=== PATIENT | female | born 1965 | race Caucasian/White ===

== ENCOUNTER 2018-02-26 08:04 | Emergency (ER) | payer OTHER, SELFPAY ==
[2018-02-26 08:15] VITALS: BP 125/87; PULSE 80; RESP 16; TEMP 36.4; O2SAT 95
--- NOTE | 2018-02-26 08:48 | W.ED.GENAD ---
Discharge Plan Disposition Patient Disposition: HOME Condition: Stable Discharge Details Chief Complaint: HeadInjury Clinical Impression: Acute head trauma Primary Care Provider: Ashish Mike ED Provider: Bhumi Elliott Home Meds and New Rx's Prescriptions: Continued hydrochlorothiazide 25 MG tablet 25 mg PO DAILY Qty: 90 RF: 4 montelukast [Singulair] 10 MG tablet 10 mg PO DAILY Qty: 30 RF: 1 cetirizine [Zyrtec] 10 MG tablet 10 mg PO HS RF: 0 losartan [Cozaar] 50 mg tablet 100 mg PO DAILY Qty: 90 RF: 3 Discharge Instructions Instructions: Head Injury (ED) Additional Instructions: Please return immediately to the emergency department if you develop any new or worsening symptoms or if you become otherwise concerned. It is extremely important that you make an appointment to be seen in follow-up for this visit by your primary care doctor within the next 1-2 weeks. Referrals: Ashish Mike, [Primary Care Provider] - Discharge Data Discharge Date/Time-TO BE ENTERED AT DEPARTURE: 02/26/18 10:43 Medical Decision Making Amy Caceres is a 52-year-old woman with history of hypertension who presented to the emergency department with mechanical fall with loss of consciousness, headache. On exam patient is very well and nontoxic appearing. She has a nonfocal neuro exam. Given persistent headache and loss of consciousness, plan for CT head for rule out intracranial bleeding. Exam/history not consistent with acute cervical spine pathology, significant extremity or thoracoabdominal injury. Record review shows tetanus updated 2012. CT had negative per radiology. Patient reporting headache since resolved at this time. She reports some mild muscle aching in bilateral shoulders, declines ibuprofen at this time. Lengthy discussion with patient regarding return to emergency department precautions and importance of outpatient follow-up with her PCP. Patient verbalizes understanding of the plan. Medical Records Medical records reviewed: Yes I reviewed the patient's medical records. Imaging Data Radiologic Study: Attestation: I personally reviewed and interpreted this imaging study as follows: Radiologist's impression: Per radiology over the phone: CT head shows no acute process, no incidental findings HPI General Mode of arrival: ambulatory. Date/Time Provider Initiated Documentation: 02/26/18 08:48. Limitations to Documentation: no limitations. Information obtained by: patient, family, RN notes reviewed and old records reviewed. HPI Narrative: Amy Caceres is a 52-year-old woman with a history of hypertension presenting to the emergency department with headache after fall. Patient reports that she was on her way to work and was standing next to her car when she slipped on ice. She remembers both of her feet flying out in front of her, and then remembers waking up lying on her back on the driveway. She states that she did not lose consciousness, and is unsure how long the loss of consciousness was. Patient believes it was brief. She was able to walk back into her house. She had nausea and lightheadedness directly after the fall, along with headache. Patient reports that nausea has resolved and headache has improved. No further lightheadedness. Patient reports that she had no symptoms preceding the fall and that fall was mechanical slip due to ice. No palpitations, lightheadedness. Patient denies any pain other than headache. No vomiting, diarrhea, numbness/tingling/weakness. No previous rash, shortness of breath, cough, or recent illness. Has been eating and drinking as usual. Related Data Home Medications Medication Instructions Recorded Confirmed hydrochlorothiazide 25 mg PO DAILY #90 tab 18 02/26/18 montelukast [Singulair] 10 mg PO DAILY #30 tab-cap 06/21/17 02/26/18 cetirizine [Zyrtec] 10 mg PO HS 08/04/17 02/26/18 losartan 50 mg tablet 100 mg PO DAILY #90 tab-cap 01/24/18 02/26/18 Previous Rx's Medication Instructions Recorded hydrochlorothiazide 25 mg PO DAILY #90 tab 06/09/17 montelukast [Singulair] 10 mg PO DAILY #30 tab-cap 06/21/17 losartan 50 mg tablet 100 mg PO DAILY #90 tab-cap 01/24/18 Allergies Allergy/AdvReac Type Severity Reaction Status Date / Time lisinopril AdvReac Intermediate cough Verified 11/29/17 15:43 General Stated Complaint: HeadInjury ALICIA: 3 Review of Systems Review of Systems Constitutional: denies fevers Eyes: denies eye pain, visual changes ENT: denies facial pain, dental pain, sore throat Cardiovascular: denies chest pain Respiratory: denies SOB, cough GI: denies abdominal pain, vomiting, diarrhea, reports nausea : denies flank pain MSK: denies back pain, neck pain, arthralgias, myalgias Skin: denies rash Neuro: reports headaches, lightheadedness after fall, denies numbness/tingling, weakness PFSH Medical History HTN (hypertension) (Chronic) Surgical History Cholecystectomy (~2011) Family History Mother Essential hypertension Hyperlipidemia Father Diabetes Essential hypertension Heart disease Hyperlipidemia Neoplasm Grandfather Essential hypertension Heart disease Grandfather Essential hypertension Heart disease Hyperlipidemia Stroke Grandmother Essential hypertension Heart disease Grandmother Essential hypertension Heart disease Hyperlipidemia Daughter No problems noted. 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 Smoking/Tobacco Use Status: Never alcohol intake: current alcohol intake frequency: a few times a month substance use type: does not use special don needs: No Exam Narrative Exam Narrative: Constitutional: well and [id number]-[id number], pleasant, conversing normally HENT: head with 2x3cm occipital hematoma with superficial abrasion, normocephalic, mucous membranes moist Eyes: conjunctiva normal, sclera normal, pupils 3mm b/l, RLA, EOMI Neck: no stridor, normal painless ROM, trachea midline, cervical spine and paraspinals nontender to palpation Chest: normal inspection Resp: normal work of breathing, LCTAB Cardio: normal rate, normal rhythm, 2 out of 6 murmur unknown to patient Back: normal inspection, no rash Skin: warm, dry, normal color, no rash Neuro: alert, not altered, cranial nerves II through XII intact, motor 5 out of 5 throughout, normal tone Ext: no edema Psych: normal mood, normal affect, normal behavior Course Vital Signs Temperature 36.4 C L 02/26/18 08:15 Pulse 80 02/26/18 08:15 Respiratory Rate 16 02/26/18 08:15 Blood Pressure 125/87 02/26/18 08:15 Pulse Oximetry 95 02/26/18 08:15 Temperature 36.4 C L 02/26/18 08:15 Temperature Source Tympanic 02/26/18 08:15 Pulse 80 02/26/18 08:15 Respiratory Rate 16 02/26/18 08:15 Respiratory Effort 02/26/18 08:15 Blood Pressure 125/87 02/26/18 08:15 Pulse Oximetry 95 02/26/18 08:15 Oxygen Delivery Method Room Air 02/26/18 08:15 Oxygen Flow Rate 0 02/26/18 08:15 Pain Level 7 02/26/18 08:15
--- NOTE | 2018-02-26 08:52 | ED.GENADUL_ITS ---
Discharge Plan Disposition Patient Disposition: HOME Condition: Stable Discharge Details Chief Complaint: HeadInjury Clinical Impression: Acute head trauma Primary Care Provider: Ashish Mike ED Provider: Bhumi Elliott Home Meds and New Rx's Prescriptions: Continued hydrochlorothiazide 25 MG tablet 25 mg PO DAILY Qty: 90 RF: 4 montelukast [Singulair] 10 MG tablet 10 mg PO DAILY Qty: 30 RF: 1 cetirizine [Zyrtec] 10 MG tablet 10 mg PO HS RF: 0 losartan [Cozaar] 50 mg tablet 100 mg PO DAILY Qty: 90 RF: 3 Discharge Instructions Instructions: Head Injury (ED) Additional Instructions: Please return immediately to the emergency department if you develop any new or worsening symptoms or if you become otherwise concerned. It is extremely important that you make an appointment to be seen in follow-up for this visit by your primary care doctor within the next 1-2 weeks. Referrals: Ashish Mike, [Primary Care Provider] - Discharge Data Discharge Date/Time-TO BE ENTERED AT DEPARTURE: 02/26/18 10:43 Medical Decision Making Amy Caceres is a 52-year-old woman with history of hypertension who presented to the emergency department with mechanical fall with loss of consciousness, headache. On exam patient is very well and nontoxic appearing. She has a nonfocal neuro exam. Given persistent headache and loss of consciousness, plan for CT head for rule out intracranial bleeding. Exam/history not consistent with acute cervical spine pathology, significant extremity or thoracoabdominal injury. Record review shows tetanus updated 2012. CT had negative per radiology. Patient reporting headache since resolved at this time. She reports some mild muscle aching in bilateral shoulders, declines ibuprofen at this time. Lengthy discussion with patient regarding return to emergency department precautions and importance of outpatient follow-up with her PCP. Patient verbalizes understanding of the plan. Medical Records Medical records reviewed: Yes I reviewed the patient's medical records. Imaging Data Radiologic Study: Attestation: I personally reviewed and interpreted this imaging study as follows: Radiologist's impression: Per radiology over the phone: CT head shows no acute process, no incidental findings HPI General Mode of arrival: ambulatory . Date/Time Provider Initiated Documentation: 02/26/18 08:48 . Limitations to Documentation: no limitations . Information obtained by: patient, family, RN notes reviewed and old records reviewed . HPI Narrative: Amy Caceres is a 52-year-old woman with a history of hypertension presenting to the emergency department with headache after fall. Patient reports that she was on her way to work and was standing next to her car when she slipped on ice. She remembers both of her feet flying out in front of her, and then remembers waking up lying on her back on the driveway. She states that she did not lose consciousness, and is unsure how long the loss of consciousness was. Patient believes it was brief. She was able to walk back into her house. She had nausea and lightheadedness directly after the fall, along with headache. Patient reports that nausea has resolved and headache has improved. No further lightheadedness. Patient reports that she had no symptoms preceding the fall and that fall was mechanical slip due to ice. No palpitation s, lightheadedness. Patient denies any pain other than headache. No vomiting, diarrhea, numbness/tingling/weakness. No previous rash, shortness of breath, cough, or recent illness. Has been eating and drinking as usual. Related Data Home Medications Medication Instructions Recorded Confirmed hydrochlorothiazide 25 mg PO DAILY #90 tab 18 02/26/18 montelukast [Singulair] 10 mg PO DAILY #30 tab-cap 06/21/17 02/26/18 cetirizine [Zyrtec] 10 mg PO HS 08/04/17 02/26/18 losartan 50 mg tablet 100 mg PO DAILY #90 tab-cap 01/24/18 02/26/18 Previous Rx's Medication Instructions Recorded hydrochlorothiazide 25 mg PO DAILY #90 tab 06/09/17 montelukast [Singulair] 10 mg PO DAILY #30 tab-cap 06/21/17 losartan 50 mg tablet 100 mg PO DAILY #90 tab-cap 01/24/18 Allergies Allergy/AdvReac Type Severity Reaction Status Date / Time lisinopril AdvReac Intermediate cough Verified 11/29/17 15:43 General Stated Complaint: HeadInjury ALICIA: 3 Review of Systems Review of Systems Constitutional: denies fevers Eyes: denies eye pain, visual changes ENT: denies facial pain, dental pain, sore throat Cardiovascular: denies chest pain Respiratory: denies SOB, cough GI: denies abdominal pain, vomiting, diarrhea, reports nausea : denies flank pain MSK: denies back pain, neck pain, arthralgias, myalgias Skin: denies rash Neuro: reports headaches, lightheadedness after fall, denies numbness/tingling, weakness PFSH Medical History HTN (hypertension) (Chronic) Surgical History Cholecystectomy (~2011) Family History Mother Essential hypertension Hyperlipidemia Father Diabetes Essential hypertension Heart disease Hyperlipidemia Neoplasm Grandfather Essential hypertension Heart disease Grandfather Essential hypertension Heart disease Hyperlipidemia Stroke Grandmother Essential hypertension Heart disease Grandmother Essential hypertension Heart disease Hyperlipidemia Daughter No problems noted. Maternal Uncle Neoplasm Social History household members: other details: 3 current occupational status: employed current occupation: [employer] Smoking/Tobacco Use Status: Never alcohol intake: current alcohol intake frequency: a few times a month substance use type: does not use special don needs: No Exam Narrative Exam Narrative: Constitutional: well and tgy-[id number]-niwqavlbt, pleasant, conversing normally HENT: head with 2x3cm occipital hematoma with superficial abrasion, normocephalic, mucous membranes moist Eyes: conjunctiva normal, sclera normal, pupils 3mm b/l, RLA, EOMI Neck: no stridor, normal painless ROM, trachea midline, cervical spine and paraspinals nontender to palpation Chest: normal inspection Resp: normal work of breathing, LCTAB Cardio: normal rate, normal rhythm, 2 out of 6 murmur unknown to patient Back: normal inspection, no rash Skin: warm, dry, normal color, no rash Neuro: alert, not altered, cranial nerves II through XII intact, motor 5 out of 5 throughout, normal tone Ext: no edema Psych: normal mood, normal affect, normal behavior Course Vital Signs Temperature 36.4 C L 02/26/18 08:15 Pulse 80 02/26/18 08:15 Respiratory Rate 16 02/26/18 08:15 Blood Pressure 125/87 02/26/18 08:15 Pulse Oximetry 95 02/26/18 08:15 Temperature 36.4 C L 02/26/18 08:15 Temperature Source Tympanic 02/26/18 08:15 Pulse 80 02/26/18 08:15 Respiratory Rate 16 02/26/18 08:15 Respiratory Effort 12/17/18 08:15 Blood Pressure 125/87 12/17/18 08:15 Pulse Oximetry 95 02/26/18 08:15 Oxygen Delivery Method Room Air 02/26/18 08:15 Oxygen Flow Rate 0 02/26/18 08:15 Pain Level 7 02/26/18 08:15
--- NOTE | 2018-02-26 09:05 | DI.CT_ITS ---
SYMPTOM/DIAGNOSIS: TRAUMA, HEADACHE CT BRAIN: Noncontrast, no priors No intracranial hemorrhage, midline shift, mass effect or acute infarct is seen. No skull fracture is present. There is mucosal thickening in the maxillary sinuses. The mastoid air cells are well pneumatized. There is opacification of a few ethmoid air cells. The frontal and sphenoid sinuses are clear. IMPRESSION: No acute intracranial process. The findings were discussed with Dr. Bhumi Elliott of the Emergency Department on the date of the examination.
[2018-02-26 10:36] VITALS: BP 120/83; PULSE 107; O2SAT 95
--- NOTE | 2018-02-26 10:36 | NUR.NOTE ---
patient reports feeling better, denies nausea, double vision Nursing Note:
== END 2018-02-26 10:43 | disposition home or self-care (01) ==
PROVIDERS: Emergency Provider Student in an Organized Health Care Education/Training Program; PCP Emergency Medicine
DX: S06.0X9A Concussion with loss of consciousness of unspecified duration, initial encounter (principal); W00.0XXA Fall on same level due to ice and snow, initial encounter; I10 Essential (primary) hypertension
CPT/HCPCS: 99284; 70450

== ENCOUNTER 2018-06-06 10:30 | Outpatient (CLI) | payer OTHER, SELFPAY ==
[2018-06-06 13:00] LABS: Cholesterol 251 mg/dL (50-200); HDL Cholesterol 48 mg/dL (40-60); LDL CHOLESTEROL 172 mg/dL (<100); Triglyceride 288 mg/dL (30-150)
[2018-06-06 13:15] LABS: Hemoglobin A1C 6.1 % (4.5-6.2)
== END 2018-06-06 10:50 ==
PROVIDERS: PCP Emergency Medicine; Visit Provider Emergency Medicine
DX: E11.9 Type 2 diabetes mellitus without complications (principal); E78.5 Hyperlipidemia, unspecified
CPT/HCPCS: 36415; 80061; 83721; 83036

== ENCOUNTER 2018-12-05 07:00 | Outpatient (CLI) | payer OTHER, SELFPAY ==
[2018-12-05 11:34] LABS: Calculated LDL 80 mg/dL; Cholesterol 147 mg/dL (50-200); HDL Cholesterol 49 mg/dL (40-60); Triglyceride 92 mg/dL (30-150)
== END 2018-12-05 07:20 ==
PROVIDERS: PCP Emergency Medicine; Visit Provider Emergency Medicine
DX: E78.5 Hyperlipidemia, unspecified (principal)
CPT/HCPCS: 36415; 80061

== ENCOUNTER 2019-01-18 07:26 | Outpatient (CLI) | payer OTHER, SELFPAY ==
--- NOTE | 2019-01-18 10:38 | DI.RAD_ITS ---
EXAM: XR CHEST 2V PA LATERAL INDICATION: Bronchospasm after respiratory infection, wheezing, R06.02. COMPARISON: No exams were available for comparison TECHNIQUE: 2D digital imaging was performed. FINDINGS: The heart size is normal. The lungs are clear. No infiltrate or effusion is seen. There is no evide nce of pneumothorax. No visible emphysematous or fibrotic changes are seen. IMPRESSION: Negative chest x-ray.
== END 2019-01-18 07:46 ==
PROVIDERS: PCP Emergency Medicine; Visit Provider Family Medicine
DX: R06.2 Wheezing (principal); J98.01 Acute bronchospasm
CPT/HCPCS: 71046

== ENCOUNTER 2019-08-26 08:53 | Outpatient (CLI) | payer OTHER, SELFPAY ==
[2019-08-27 14:17] LABS: COVID-19 RT-PCR UVMMC Result Negative (Negative)
== END 2019-08-26 09:13 ==
PROVIDERS: PCP Emergency Medicine; Visit Provider Family Medicine
DX: Z11.59 Encounter for screening for other viral diseases (principal)
CPT/HCPCS: U0003

== ENCOUNTER 2019-08-28 02:40 | Outpatient (CLI) | payer OTHER, SELFPAY ==
[2019-08-28 08:33] LABS: Abs Immature Grans 0.01 k/cumm (0.0-0.09); Absolute Basophil Count 0.02 k/cumm (0.0-0.2); Absolute Eosinophil Count 0.19 k/cumm (0.0-0.7); Absolute Lymphocyte Count 1.73 k/cumm (1.2-3.4); Absolute Monocyte Count 0.34 k/cumm (0.11-0.7); Absolute Neutrophil Count 3.33 k/cumm (1.2-6.7); Basophils % 0.4; Eosinophils % 3.4; HGB 14.1 g/dL (12.0-15.5); Immature Grans % 0.2 %; Lymphocytes % 30.8; Mean Corp. HGB Concentration 34.4 g/dL (32.0-36.0); Mean Corpuscular Hemoglobin 29.5 pg (27.0-33.0); Mean Corpuscular Volume 85.8 fL (80-95); Neutrophils % 59.2; Platelet Count 274 x1000/uL (130-400); RBC 4.78 m/cumm (4.00-5.20); White Blood Cell Count 5.62 k/cumm (4.4-10.8)
[2019-08-28 08:45] LABS: ALT 52 U/L (14-59); AST 28 U/L (15-37); Albumin 3.9 g/dL (3.4-5.0); Alkaline Phosphatase 93 U/L (46-116); Anion Gap 9.5 mmol/L (3-11); BUN 15 mg/dL (7-18); Bilirubin, Total 0.5 mg/dL (0.2-1.0); C-Reactive Protein 0.35 mg/dL (0.0-0.3); CO2 30.5 mmol/L (21.0-32.0); CREATININE 0.85 mg/dL (0.55-1.02); Calcium 9.1 mg/dL (8.5-10.1); Chloride 100 mmol/L (98-107); Glucose 129 mg/dL (74-106); Potassium 3.5 mmol/L (3.5-5.1); Sodium 140 mmol/L (136-145); Total Protein 7.5 g/dL (6.4-8.2)
--- NOTE | 2019-08-28 09:18 | DI.CT_ITS ---
EXAM: CT CHEST PE CTA CLINICAL HISTORY: SOB,R06.02. TECHNIQUE: Imaging Protocol: Axial CT angiography was performed with multi-slice acquisition and mu lti-planar and/or 3D reconstructions. CONTRAST MATERIAL: Intravenous: Omnipaque 350 Contrast volume:79 ml COMPARISON: CR XR CHEST 2V PA LATERAL from 01/18/2019 FINDINGS: Pulmonary Arteries: No evidence of filling defect to suggest pulmonary emboli. Tracheobronchial tree: Patent where visualized. Mediastinum and Acte: No dominant adenopathy or fluid collection. Pulmonary parenchyma: Exam was performed during expiration. No consolidation or dominant measurable mass. Small bleb posteriorly in the right lower lobe. Mild bilateral air trapping.. No visible em physematous or fibrotic changes. Pleura: No effusion or pneumothorax. Heart: The heart is not dilated. No coronary artery calcifications are seen. Aorta: Thoracic aorta non-dilated. Mild calcification at the arch. No dissection. Upper abdomen: Status post cholecystectomy. Bones: Degenerative disc changes in the spine. Tubes, Catheters, and Lines: None IMPRESSION: No evidence of pulmonary embolism or other acute abnormality.. RADIATION DOSE DELIVERED: 604.58mGy.cm Total DLP DATA REPOSITORY: All CT scans at this facility are submitted to the National Radiology Data Registry (NRDR) Dose Index Registry (DIR) with the [employer] (ACR). RADIATION OPTIMIZATION: All CT scans at this facility use at least one of these dose optimization te chniques: automated exposure control; mA and/or kV adjustment per patient size (includes targeted exa ms where dose is matched to clinical indication); or iterative reconstruction.
[2019-08-28] MEDS: Omnipaque 350 MG/ML 100 ML BTL IJ (09:19)
[2019-08-28 09:20] LABS: ESR 12 mm/hr (0-30)
[2019-08-28] MEDS: Normal Saline Flush 10 ML SYR IVP (09:20)
[2019-08-28] MEDS: Normal Saline - Diluent 50 ML VIAL IV (09:20)
[2019-08-28 09:24] LABS: D-Dimer 219 ng/mlFEU (<500)
== END 2019-08-28 03:00 ==
PROVIDERS: PCP Emergency Medicine; Visit Provider Emergency Medicine
DX: R06.02 Shortness of breath (principal); R91.8 Other nonspecific abnormal finding of lung field
CPT/HCPCS: 71275; 80053; 85652; 85025; 85379; 86140; J3490

== ENCOUNTER 2019-08-28 04:19 | Outpatient (CLI) | payer OTHER, SELFPAY | END 2019-08-28 04:39 | PROVIDERS: PCP Emergency Medicine; Visit Provider Emergency Medicine | DX: R06.02 Shortness of breath (principal); R06.09 Other forms of dyspnea | CPT/HCPCS: 94060 ==

== ENCOUNTER 2020-07-15 08:58 | Outpatient (CLI) | payer OTHER, SELFPAY ==
[2020-07-15 12:53] LABS: Anion Gap 9.9 mmol/L (3-11); BUN 19 mg/dL (7-18); CO2 30.1 mmol/L (21.0-32.0); CREATININE 0.7 mg/dL (0.55-1.02); Calcium 9.6 mg/dL (8.5-10.1); Chloride 103 mmol/L (98-107); Glucose 123 mg/dL (74-106); Potassium 3.7 mmol/L (3.5-5.1); Sodium 143 mmol/L (136-145)
[2020-07-15 13:01] LABS: Hemoglobin A1C 6.3 % (<5.7)
[2020-07-15 13:05] LABS: Calculated LDL 71 mg/dL (<100); Cholesterol 148 mg/dL (<200); HDL Cholesterol 52 mg/dL (40-60); Triglyceride 128 mg/dL (<150)
== END 2020-07-15 08:59 | disposition home or self-care (01) ==
LOC: LOS 08:58
PROVIDERS: PCP Emergency Medicine; Visit Provider Emergency Medicine
DX: I10 Essential (primary) hypertension (principal); E78.5 Hyperlipidemia, unspecified; E11.9 Type 2 diabetes mellitus without complications; E66.9 Obesity, unspecified
CPT/HCPCS: 36415; 80048; 80061; 83036

== ENCOUNTER 2020-07-15 10:37 | Outpatient (REF) | payer OTHER, SELFPAY ==
--- NOTE | 2020-07-15 08:30 | PAPFT_PTH ---
PATIENT: Amy Caceres LOC: [facility]#:[id number] AGE/SX: 54/F ROOM: RE07/15/[address]: Ashish Mike DO : 1965 BED: DIS: 07/15/2020 SPEC #: [id number] RECD: 07/15/20 12:58 STATUS: JR REXu #: [id number] LORAINE: 07/15/20 08:[address]: Ashish Mike DEPT: [facility] Cytology RECD BY: Ashlie Duval Tissues: 1 - CX/ENDOCX FOR PAP SMEARS Procedures: PAP THIN PREP/UVM Screening HPV DNA PROBE Comments: [id number]
== END 2020-07-15 10:38 | disposition home or self-care (01) ==
LOC: NCHCN 10:37
PROVIDERS: PCP Emergency Medicine; Visit Provider Emergency Medicine
DX: Z12.4 Encounter for screening for malignant neoplasm of cervix (principal); Z11.51 Encounter for screening for human papillomavirus (HPV)
CPT/HCPCS: 88142; 87624

== ENCOUNTER 2020-07-22 02:15 | Outpatient (CLI) | payer OTHER, SELFPAY ==
--- NOTE | 2020-07-22 12:35 | DI.MAMMO_ITS ---
Exam(s) MAMMO SCREENING EXAM: MAMMO SCREENING CLINICAL HISTORY: screening,Z12.39. TECHNIQUE: Bilateral full field digital CC and MLO mammographic images were obtained with 3D tomosyn thesis and utilizing computer aided detection (CAD). COMPARISON: Prior mammogram performed in July 2016 There are no other prior mammograms in our PACS FINDINGS: There are no new spiculated masses nor malignant appearing microcalcification groups. There is no significant architectural distortion nor skin thickening-retraction. IMPRESSION: No radiographic evidence of malignancy. BI-RADS Category 1 - Negative Breast Density - Category A - Almost entirely fatty Breast density Category C or D implies that the patient has dense breast tissue. Dense breast tissue can make it harder to find cancer on a mammogram. Dense breast tissue is also associated with an incr eased risk of breast cancer. This information about the result of the mammogram report was provided to the patient to raise their awareness. Use this report when you speak with the patient about their risks for breast cancer, which includes their family history. At that time, you may recommend additional screening tests (Ultrasoun d or MRI) as these tests may add significant information. A negative radiographic report should not delay biopsy if a dominant or clinically suspicious mass is present. Up to ten percent of cancers are not identified on mammography. A negative report may reinforce clinical impression. Adenosis and dense breasts may obscure an underlying neoplasm. False positive reports average 6 to 10%. Patient will receive a letter notifying them of these results.
== END 2020-07-22 02:35 ==
PROVIDERS: PCP Emergency Medicine; Visit Provider Emergency Medicine
DX: Z12.31 Encounter for screening mammogram for malignant neoplasm of breast (principal)
CPT/HCPCS: 77063; 77067

== ENCOUNTER 2021-02-17 01:56 | Outpatient (CLI) | payer OTHER, SELFPAY ==
[2021-02-17 11:43] LABS: Source Nasal/Nares
[2021-02-17 13:50] LABS: COVID-19 PCR Negative (Negative)
== END 2021-02-17 01:57 | disposition home or self-care (01) ==
LOC: LBO 01:56
PROVIDERS: PCP Emergency Medicine; Visit Provider Surgery
DX: Z20.822 Contact with and (suspected) exposure to COVID-19 (principal)
CPT/HCPCS: 87635

== ENCOUNTER 2021-02-19 12:05 | Day surgery (SDC) | payer OTHER, SELFPAY ==
--- NOTE | 2021-02-18 21:43 | COLE_ITS ---
Colonoscopy Report Date of procedure: 02/19/21 Pre-op diagnosis general: CRC screen Surgeon: Leyla Gaston Anesthesia Type: General:No Airway Disposition: same day Prep: Miralax/Dulcolax Retraction Time: 10 Procedure Description: After informed consent was obtained the patient was taken to the procedure room and placed in a left decubitous position. Monitors were applied and a time out was done. The patients name, date of , procedure, allergies to medications and metal in their body was reviewed. The patient was then sedated. Once sedated and comfortable a rectal exam was done. External exam was normal. Internal exam revealed a normal sphincter tone and no palpable masses. The scope was then introduced and retrofelexed. No internal hemorrhoids were identified. The scope was then advanced to the cecum w difficulty. The TI and appendiceal orifice were identified. The prep was good. The scope was then slowly retracted over 10 minutes back into the rectum. There is a small, flat, 0.75cm polyp at 80cm. There are no diverticula. The mucosa appears nl. Bx were taken at cecum/70/50/30cm and rectum. All specimens are retrieved and no blee ding is noted. This is removed w/ x2 bites of a cold biting forcept. The scope was removed and the patient was woken up and taken back to Same day surgery in stable condition. The patient tolerated the procedure well and there were no immediate complications. Follow up: The patient should follow up in 5-7 years, path pd, unless they develop changes in bowel habits or other new gastrointestinal complaints.
--- NOTE | 2021-02-18 21:44 | PDOC.DSDIS_ITS ---
Discharge Plan Disposition Patient Disposition: HOME Condition: Good Discharge Details Reason For Visit: colon scope Attending Provider: Leyla Gaston Primary Care Provider: Ashish Mike Home Meds and New Rx's Prescriptions: Continued (DME) Aerochamber MV Spacer See Rx Instructions .ROUTE .MEDSUPPLY Qty: 1 RF: 0 fluticasone propionate 50 mcg/actuation spray,suspension 1 spray intranasal DAILY PRNRF: 0 budesonide-formoterol [Symbicort] 160-4.5 mcg/actuation HFA aerosol inhaler 2 puff IH BID Qty: 10.2 RF: 0 hydrochlorothiazide 25 mg tablet 25 mg PO DAILY Qty: 90 RF: 4 rosuvastatin [Crestor] 10 mg tablet 10 mg PO DAILY Qty: 90 RF: 3 losartan [Cozaar] 50 mg tablet 100 mg PO DAILY Qty: 180 RF: 3 Trelegy Ellipta 100-62.5-25 mcg blister with device 1 inh inhalation DAILY Qty: 28 RF: 11 albuterol sulfate 90 mcg/actuation HFA aerosol inhaler 2 inh IH Q4H PRN (Reason: shortness of breath or wheezing) Qty: 18 RF: 11 Discontinued polyethylene glycol 3350 17 gram/dose powder 238 g PO ONCE Qty: 238 RF: 0 bisacodyl [Dulcolax (bisacodyl)] 5 mg tablet,delayed release (DR/EC) 5 mg PO ONCE Qty: 4 RF: 0 No Action Trelegy Ellipta 100-62.5-25 mcg blister with device INHALATION RF: 0 Discharge Instructions Additional Instructions: DSU Colonoscopy Post- Op Instructions Instructions for Everyone who is given Anesthesia: For your safety, please do the following for the next twenty-four (24) hours: *Do Not operate a motor vehicle (car, truck, motorcycle, etc.) *Do Not drink alcoholic beverages or use any recreational drugs for the first 24 hours or while taking pain medications. The medications in your body may have a reaction that can be dangerous. *Do Not make any important decisions or sign any important papers. Findings: x2 polyps Follow up: My office will send a letter in 2 to 3 weeks time detailing as to what of polyps they are and when we want you to repeat your colonoscopy. 1. No lifting over 20 pounds or strenuous activity for the first 24 hours after your procedure. After 24 hours there are no restrictions on your activity but you may feel fatigued for a few days. 2. After you arrive home you may have a light meal and return to your normal diet as you can tolerate it without feeling sick to your stomach. 3. You may have a bloated, gaseous feeling in your belly (abdomen) after a colonoscopy. Passing gas and belching will help. Walking or lying down on your left side with your knees flexed may relieve the discomfort. Call the office at [phone] (Office) or [phone] (Hospital) right away if you notice any of the following: a.Vomiting of blood or ?coffee ground stools?. b.Rectal bleeding 1Tbsp, blood clots or continuous bleeding. c.Severe belly (abdominal) pain. d.A hard distended belly (abdomen) and an inability to pass gas. 4. Please don?t expect to have a normal BM (bowel movement) for 2-3 days after your procedure. 5. If there are questions regarding the findings of your procedure, please contact your doctor 6. If you are unable to contact your doctor with a problem, contact the hospital at [phone]. 7. Continue all your regular medications unless directed otherwise. I understand the above instructions and have no questions. Signature of Patient or Adult Escort Name of Responsible Adult Escort Signature of Nurse Date/Time Activity:: see above Diet:: see above Discharge Orders Discharge Orders: Discharge Order (Routine); Ordered 02/18/21 Ordered By: Leyla Gaston DS: Diagnosis Discharge Diagnosis (1) Asthma: Status: Chronic (2) Colon cancer screening: Status: Acute (3) Colon polyp: Status: Acute
[2021-02-19 12:08] VITALS: BP 136/106; PULSE 111; RESP 16; TEMP 36.4; O2SAT 97
[2021-02-19] MEDS: Lactated Ringers 1,000 ML 80 ML IV (13:07)
--- NOTE | 2021-02-19 13:15 | W.ANESPRE ---
General Info Date of Service Date Performed: 02/19/21 Height: 5 ft 5 in Weight: 98.8 kg Body Mass Index (BMI): 36.2 Surgical Procedure: Operation Date: 02/19/21 12:20 Proposed Procedures Side Surgeon pavithra Gaston, DO Meds Allergies and Home Medications Allergies Allergy/AdvReac Type Severity Reaction Status Date / Time lisinopril AdvReac Intermediate cough Verified 02/19/21 12:17 Home Medication Medication Instructions Recorded inhalational spacing device #1 each 01/16/19 budesonide-formoterol HFA 160 2 puff IH BID #10.2 gm 08/20/19 mcg-4.5 mcg/actuation aerosol inhaler hydrochlorothiazide 25 mg tablet 25 mg PO DAILY #90 tab 07/24/20 rosuvastatin 10 mg tablet 10 mg PO DAILY #90 tab 07/24/20 losartan 50 mg tablet 100 mg PO DAILY #180 tab-cap 08/19/20 fluticasone fur. 100 mcg-umeclid 1 inh INHALATION DAILY #28 ea 09/04/20 62.5 mcg-vilant 25 mcg inhalat.powder albuterol sulfate 90 mcg/actuation 2 inh IH Q4H PRN #18 gm 09/25/20 aerosol inhaler fluticasone propionate 50 1 spray INTRANASAL DAILY PRN 11/04/20 mcg/actuation nasal spray,suspension [id number] INHALATION 02/19/21 [[facility]] Current Visit Medications: Current Medications Generic Name Dose Route Start Last Admin Trade Name Freq PRN Reason Stop Dose Admin Albuterol/Ipratropium 3 ml 02/19/21 13:10 Albuterol/Ipratropium 3 Ml Upd Vial UPD 02/19/21 13:11 .X 1 DOSE STA Hyoscyamine Sulfate 0.125 mg 02/18/21 21:42 Hyoscyamine 0.125 Mg Sl/Oral/Chew SL DIRECTED PRN Ringer's Solution 1,000 mls @ 80 mls/hr 02/19/21 06:00 02/19/21 13:07 IV 03/20/21 23:59 80 mls/hr INFUSION EDA Administration IV Miscellaneous Supplies 1 each 02/19/21 06:00 Iv Access IV 03/20/21 23:59 DIRECTED EDA Ondansetron HCl 4 mg 02/18/21 21:42 Ondansetron 4 Mg/2 Ml Vial IVP Q4H PRN PRN Nausea / Vomiting Sodium Chloride 0 ml 02/19/21 06:00 Normal Saline Flush 10 Ml Syr IV 03/20/21 23:59 PRN PRN Sodium Chloride 0 ml 02/19/21 06:00 Normal Saline 10 Ml Vial IJ 03/20/21 23:59 DIRECTED PRN Sterile Water 0 ml 02/19/21 06:00 Water,Injection,Sterile 10 Ml Vial IJ 03/20/21 23:59 DIRECTED PRN PFSH Active Problems Active Problems: Problem Status Onset Code Asthma J45.909 SOB (shortness of breath) R06.02 Asthma attacks lasting more than 24 hours J45.901 Colon cancer screening Z12.11 Bronchospasm J98.01 Status post cholecystectomy Z90.49 Varicose veins of right leg with edema 07/20/16 I83.891 Obesity (BMI 30-39.9) 07/20/16 E66.9 Hyperlipidemia E78.5 Essential hypertension I10 Medical History Medical History HTN (hypertension) Surgical History Surgical History Cholecystectomy (~2011) Tobacco Smoking/Tobacco Use Status: Never Passive smoking exposure: Yes Second hand exposure: Yes Alcohol Alcohol Intake: current Alcohol intake frequency: a few times a month Alcohol type: beer and hard liquor Substance Use Substance use: Never Substance use type: does not use Details: no alcohol for over a week Vital Signs and Lab Results Vital Signs Most Recent Vital Signs in EMR: Most Recent Vital Signs Temp Pulse Resp BP Pulse Ox 36.4 C L 111 H 16 136/106 H 97 02/19/21 12:08 02/19/21 12:08 02/19/21 12:08 02/19/21 12:08 02/19/21 12:08 Lab Results Blood Type / Crossmatch: No Data to Display Complete Blood Count: No Data to Display Complete Metabolic Panel: No Data to Display Liver Function Panel: No Data to Display Coagulation Panel: No Data to Display Cardiac Panel: No Data to Display Arterial Blood Gas: No Data to Display Venous Blood Gas: No Data to Display Pancreas Panel: No Data to Display Thyroid Panel: No Data to Display Infectious Disease: Coronavirus (COVID-19)(PCR) Negative (Negative) 02/17/21 09:20 02/17/21 Coronavirus 2019 Source Nasal/Nares 02/17/21 09:20 02/17/21 Blood Cultures: No Data to Display Toxicology Panel: No Data to Display Panel: No Data to Display Imaging and Studies Imaging and Studies Study information below may be from another EMR and interpreted by another provider. Please see original notes in EMR for more complete details. Pulmonary Function Summary: Date of service: 08/28/19 Time of Service: :19 Pulmonary Function Test Result Interpretation Spirometry: Spirometry shows no evidence of obstructive airways disease but there is significant bronchodilator response. Lung Volumes: Not done Diffusion Capacity: Not done Airway Pressure: Not done Impression No evidence of obstructive airways disease on spirometry, but there is significant bronchodilator response. If the diagnosis of asthma is in question which could be in the differential diagnosis seeing this pulmonary function test, proceeding with methacholine challenge testing may prove to be useful. Therefore clinical correlation recommended. Clinical Correlation therefore is recommended. Anesthesia Assessment and Plan Anesthesia History Personal History: No History of Anesthesia Complications Family History: No Family History of Anesthesia Complications Exercise Tolerance Exercise Tolerance: Metabolic Equivalents>4 Pertinent Negatives Pertinent Negatives: No Symptoms of GERD Cardiac & Pulmonary Exam Cardiac Exam: Normal S1/S2 Heart Sounds Pulmonary Exam: Clear Bilateral Breath Sounds Implantable Cardiac Device Does patient have a Pacemaker or an ICD?: No Airway Exam Known Difficult Airway: No Mallampati Class: 2 Mouth Opening: Narrow (< 3cm) Thyromental Distance: Greater than 3 cm Neck Range of Motion: Full ROM Neck Circumference: Normal Teeth Condition: Normal Dentition ASA Classification ASA Score: ASA 2 Emergency Case?: No NPO Status NPO Status: NPO Clears >2 hours, Solids >8 hours Status Status: Not Relevant due to Medical History Anesthesia Plan Resuscitation Status: Full Code Anesthesia Technique: General Anesthesia Airway Planned: Natural Airway Monitors Used: Standard Monitors
[2021-02-19 13:29] VITALS: BMI 36.2
[2021-02-19 14:00] VITALS: BP 115/72; PULSE 95; RESP 16; TEMP 36; O2SAT 95
--- NOTE | 2021-02-19 14:00 | BOWEL_PTH ---
PATIENT: Amy Caceres LOC: [facility] U#:[id number] AGE/SX: 55/F ROOM: RE02/19/[address]: Leyla Gaston : 1965 BED: DIS: 02/19/2021 SPEC #: [id number] RECD: 02/19/21 15:38 STATUS: JR REQ #: [id number] LORAINE: 02/19/21 14:[address]: Leyla Gaston DEPT: Surgical Specimen RECD BY: Ashlie Duval ENTERED: 02/19/21 15:38 SP TYPE: Bowel OTHR DR: Ashish Mike DO Tissues: 1 - BIOPSY BOWEL 2 - BIOPSY BOWEL Procedures: GROSS AND MICRO LEVEL 4 Comments: [id number]
--- NOTE | 2021-02-19 14:20 | W.ANESPOSTOP ---
Postoperative Evaluation Date, Time and Location Date Performed: 02/19/21 Time Performed: 14:05 Patient Location: Day [facility] Unit Vital Signs Most Recent Imported Vital Signs: Most Recent Vital Signs Temp Pulse Resp BP Pulse Ox 36.0 C L 95 H 16 115/72 95 02/19/21 14:00 02/19/21 14:00 02/19/21 14:00 02/19/21 14:00 02/19/21 14:00 Pain Score Most Recent Pain Score: Most Recent Pain Score Pain Level 0 02/19/21 14:00 Assessment Mental Status: Awake (Alert & Oriented to Patient Baseline) Airway and Respiratory Function: Patent airway with normal (patient baseline) respiratory exam Cardiovascular Function: Hemodynamically Stable Hydration Status: Adequately Hydrated Nausea & Vomiting: No Nausea or Vomiting Pain: Pt. Denies Any Pain Peripheral Nerve Block: Patient did not receive a nerve block
[2021-02-19 14:23] VITALS: BP 119/80; PULSE 81; RESP 16; TEMP 36.6; O2SAT 96
== END 2021-02-19 14:45 | disposition home or self-care (01) ==
LOC: SUR 12:06
PROVIDERS: PCP Emergency Medicine; Visit Provider Surgery
PROC: 0DJD8ZZ Inspection of Lower Intestinal Tract, Via Natural or Artificial Opening Endoscopic (ICD-10-PCS; CPT 45378; principal; 2021-02-19 12:15)
DX: Z12.11 Encounter for screening for malignant neoplasm of colon (principal); K63.5 Polyp of colon
CPT/HCPCS: 45380; 88305

== ENCOUNTER 2021-03-08 19:07 | Outpatient (REF) | payer OTHER, SELFPAY ==
[2021-03-10 21:29] LABS: COVID-19 RT-PCR UVMMC Result Positive (Negative)
== END 2021-03-08 19:08 | disposition home or self-care (01) ==
LOC: LBN 19:07
PROVIDERS: PCP Emergency Medicine; Visit Provider Family Medicine
DX: R11.0 Nausea (principal); Z20.822 Contact with and (suspected) exposure to COVID-19
CPT/HCPCS: U0003

== ENCOUNTER → 2021-10-06 01:55 | Outpatient (CLI) | payer OTHER, SELFPAY ==
--- NOTE | 2021-10-06 09:10 | DI.MAMMO_ITS ---
Exam(s) MAMMO SCREENING EXAM: MAMMO SCREENING CLINICAL HISTORY: screening, Z12.39 TECHNIQUE: Bilateral full field digital CC and MLO mammographic images were obtained with 3D tomosyn thesis and utilizing computer aided detection (CAD). COMPARISON: Available for comparison. FINDINGS: Masses/Architectural Distortion: None seen. Microcalcifications: No suspicious pleomorphic-type are seen. Skin Thickening/Nipple Retraction: None. IMPRESSION: 1. No significant interval change with no specific features of malignancy noted. 2. Unless there is more urgent need, screening mammography is recommended, as per [employer] guidelines. BI-RADS Category 1 - Negative Breast Density - Category B - Scattered areas of fibroglandular density Breast density category C or D implies that the patient has dense breast tissue. Dense breast tissue is very common and is not abnormal but dense breast tissue can make it harder to find cancer on a ma mmogram. Also, dense breast tissue may increase their breast cancer risk. This information about the result of the mammogram report was provided to the patient to raise their awareness. Use this report when you speak with the patient about their risks for breast cancer, which includes their family hist ory. At that time, you may recommend for more screening tests (Ultrasound or MRI) as they might be us eful based on their risk. A negative radiographic report should not delay biopsy if a dominant or clinically suspicious mass is present. Up to ten percent of cancers are not identified on mammography. A negative report may reinforce clinical impression. Adenosis and dense breasts may obscure an underlying neoplasm. False positive reports average 6 to 10%. Patient will receive a letter notifying them of these results.
== END ==
PROVIDERS: Visit Provider Family Medicine
DX: Z12.31 Encounter for screening mammogram for malignant neoplasm of breast (principal); R92.8 Other abnormal and inconclusive findings on diagnostic imaging of breast
CPT/HCPCS: 77063; 77067

== ENCOUNTER 2021-11-22 03:44 | Outpatient (CLI) | payer OTHER, SELFPAY ==
[2021-11-22 12:31] LABS: Hemoglobin A1C 6.6 % (<5.7)
[2021-11-22 12:33] LABS: ALT 68 U/L (14-59); Anion Gap 8.2 mmol/L (3-11); BUN 13 mg/dL (7-18); CO2 29.8 mmol/L (21.0-32.0); CREATININE 0.7 mg/dL (0.55-1.02); Calcium 8.7 mg/dL (8.5-10.1); Calculated LDL 72 mg/dL (<100); Chloride 103 mmol/L (98-107); Cholesterol 144 mg/dL (<200); Estimated GFR 102.07 (mL/min/1.73m2); Glucose 108 mg/dL (74-106); HDL Cholesterol 49 mg/dL (40-60); Potassium 3.4 mmol/L (3.5-5.1); Sodium 141 mmol/L (136-145); Triglyceride 115 mg/dL (<150)
== END 2021-11-22 03:45 | disposition home or self-care (01) ==
LOC: LOS 03:47
DX: E78.5 Hyperlipidemia, unspecified (principal); I10 Essential (primary) hypertension
CPT/HCPCS: 36415; 80048; 80061; 83036; 84460

== ENCOUNTER → 2022-11-16 02:49 | Outpatient (CLI) | payer OTHER, SELFPAY ==
--- NOTE | 2022-11-16 07:00 | DI.MAMMO_ITS ---
Exam(s) MAMMO SCREENING EXAM: MAMMO SCREENING CLINICAL HISTORY: screening,Z12.39 TECHNIQUE: Bilateral full field digital CC and MLO mammographic images were obtained with 3D tomosyn thesis and utilizing computer aided detection (CAD). COMPARISON: Available for comparison. FINDINGS: Masses/Architectural Distortion: None seen. Microcalcifications: No suspicious pleomorphic-type are seen. Skin Thickening/Nipple Retraction: None. IMPRESSION: 1. No significant interval change with no specific features of malignancy noted. 2. Unless there is more urgent need, screening mammography is recommended, as per [place] [employer] guidelines. BI-RADS Category 1 - Negative Breast Density - Category B - Scattered areas of fibroglandular density Breast density category C or D implies that the patient has dense breast tissue. Dense breast tissue is very common and is not abnormal but dense breast tissue can make it harder to find cancer on a ma mmogram. Also, dense breast tissue may increase their breast cancer risk. This information about the result of the mammogram report was provided to the patient to raise their awareness. Use this report when you speak with the patient about their risks for breast cancer, which includes their family hist ory. At that time, you may recommend for more screening tests (Ultrasound or MRI) as they might be us eful based on their risk. A negative radiographic report should not delay biopsy if a dominant or clinically suspicious mass is present. Up to ten percent of cancers are not identified on mammography. A negative report may reinforce clinical impression. Adenosis and dense breasts may obscure an underlying neoplasm. False positive reports average 6 to 10%. Patient will receive a letter notifying them of these results.
== END ==
PROVIDERS: PCP Nurse Practitioner Family; Visit Provider Nurse Practitioner Family
DX: Z12.31 Encounter for screening mammogram for malignant neoplasm of breast (principal)
CPT/HCPCS: 77063; 77067

== ENCOUNTER 2023-04-05 02:46 | Outpatient (CLI) | payer OTHER, SELFPAY ==
[2023-04-05 08:31] LABS: ALT 56 U/L (14-59); AST 29 U/L (15-37); Albumin 3.8 g/dL (3.4-5.0); Alkaline Phosphatase 89 U/L (46-116); Anion Gap 7.7 mmol/L (3-11); BUN 21 mg/dL (7-18); Bilirubin, Total 0.8 mg/dL (0.2-1.0); CO2 32.3 mmol/L (21.0-32.0); CREATININE 0.8 mg/dL (0.55-1.02); Calcium 9.2 mg/dL (8.5-10.1); Calculated LDL 78 mg/dL (<100); Chloride 100 mmol/L (98-107); Cholesterol 157 mg/dL (<200); Estimated GFR 86.42 (mL/min/1.73m2); Glucose 162 mg/dL (74-106); HDL Cholesterol 55 mg/dL (40-60); Potassium 3.6 mmol/L (3.5-5.1); Sodium 140 mmol/L (136-145); Total Protein 7.7 g/dL (6.4-8.2); Triglyceride 121 mg/dL (<150)
[2023-04-05 19:45] LABS: Hepatitis C Ab w Rflx HCV PCR Negative (Negative)
[2023-04-05 19:50] LABS: HIV-1/2 Ag & Ab Screen Negative (Negative)
== END 2023-04-05 02:47 | disposition home or self-care (01) ==
LOC: LBO 02:46
PROVIDERS: PCP Nurse Practitioner Family; Visit Provider Nurse Practitioner Family
DX: Z11.4 Encounter for screening for human immunodeficiency virus [HIV] (principal); E78.5 Hyperlipidemia, unspecified; E11.9 Type 2 diabetes mellitus without complications; Z53.20 Procedure and treatment not carried out because of patient's decision for unspecified reasons
CPT/HCPCS: 36415; 80053; 80061; 86803; 87389; 83036

== ENCOUNTER 2023-11-28 01:13 | Outpatient (CLI) | payer OTHER, SELFPAY ==
--- NOTE | 2023-11-28 07:15 | DI.MAMMO_ITS ---
Exam(s) MAMMO SCREENING EXAM: MAMMO SCREENING CLINICAL HISTORY: screening,z12.39. TECHNIQUE: Bilateral full field digital CC and MLO mammographic images were obtained with 3D tomosyn thesis and utilizing computer aided detection (CAD). COMPARISON: Prior mammograms were reviewed. FINDINGS: There has been no significant change in the appearance and distribution of the fibroglandular tissue. No CAD designations. There are no new spiculated masses nor malignant appearing microcalcification groups. There is no significant architectural distortion nor skin thickening-retraction. IMPRESSION: No radiographic evidence of malignancy. BI-RADS Category 1 - Negative Breast Density - Category B - Scattered areas of fibroglandular density Breast density Category C or D implies that the patient has dense breast tissue. Dense breast tissue can make it harder to find cancer on a mammogram. Dense breast tissue is also associated with an incr eased risk of breast cancer. This information about the result of the mammogram report was provided to the patient to raise their awareness. Use this report when you speak with the patient about their risks for breast cancer, which includes their family history. At that time, you may recommend additional screening tests (Ultrasoun d or MRI) as these tests may add significant information. A negative radiographic report should not delay biopsy if a dominant or clinically suspicious mass is present. Up to ten percent of cancers are not identified on mammography. A negative report may reinforce clinical impression. Adenosis and dense breasts may obscure an underlying neoplasm. False positive reports average 6 to 10%. Patient will receive a letter notifying them of these results.
== END 2023-11-28 01:33 ==
LOC: DI 01:14
PROVIDERS: PCP Nurse Practitioner Family; Visit Provider Nurse Practitioner Family
DX: Z12.31 Encounter for screening mammogram for malignant neoplasm of breast (principal)
CPT/HCPCS: 77063; 77067

== ENCOUNTER 2024-07-24 03:20 | Outpatient (CLI) | payer OTHER, SELFPAY ==
[2024-07-24 09:52] LABS: ALT 45 U/L (14-59); AST 27 U/L (15-37); Albumin 3.9 g/dL (3.4-5.0); Alkaline Phosphatase 87 U/L (46-116); Anion Gap 8.2 mmol/L (3-11); BUN 18 mg/dL (7-18); Bilirubin, Total 0.8 mg/dL (0.2-1.0); CO2 31.8 mmol/L (21.0-32.0); CREATININE 0.7 mg/dL (0.55-1.02); Calcium 9.5 mg/dL (8.5-10.1); Chloride 102 mmol/L (98-107); Estimated GFR 100.81 (mL/min/1.73m2); Glucose 126 mg/dL (74-106); Potassium 3.6 mmol/L (3.5-5.1); Sodium 142 mmol/L (136-145); Total Protein 7.4 g/dL (6.4-8.2)
[2024-07-24 10:10] LABS: Calculated LDL 65 mg/dL (<100); Cholesterol 147 mg/dL (<200); HDL Cholesterol 54 mg/dL (>or=50); Triglyceride 142 mg/dL (<150)
== END 2024-07-24 03:21 | disposition home or self-care (01) ==
PROVIDERS: PCP Nurse Practitioner Family; Visit Provider Nurse Practitioner Family
DX: E78.5 Hyperlipidemia, unspecified (principal)
CPT/HCPCS: 36415; 80053; 80061